=== PATIENT | female | born 2000 | race African-American/Black ===

== ENCOUNTER → 2020-04-10 11:08 | Outpatient (CLI) | payer OTHER, MEDICAID, SELFPAY | PROVIDERS: Visit Provider Physician Assistant | DX: N89.8 Other specified noninflammatory disorders of vagina (principal) | CPT/HCPCS: 87210; 87491; 87591 ==

== ENCOUNTER → 2020-07-05 10:31 | Outpatient (CLI) | payer OTHER, MEDICAID, SELFPAY | PROVIDERS: Visit Provider Physician Assistant | DX: N89.8 Other specified noninflammatory disorders of vagina (principal) | CPT/HCPCS: 87210 ==

== ENCOUNTER → 2020-07-31 09:26 | Outpatient (CLI) | payer OTHER, MEDICAID, SELFPAY ==
[2020-07-31 10:23] LABS: Add Manual Diff / Slide Review NO; Basophils Absolute Auto 0 /uL (0-100); Basophils Percent Auto 0.5 % (0-2); Eosinophils Absolute Auto 200 /uL (0-450); Eosinophils Percent Auto 1.8 % (2-4); Hematocrit 35.2 % (36-46); Hemoglobin 11.2 g/dL (12.0-16.0); Lymphocytes Absolute Auto 2100 /uL (1100-4500); Lymphocytes Percent Auto 24.2 % (25-40); Mean Corpuscular HGB Conc 31.7 % (30-36); Mean Corpuscular Hemoglobin 23.4 PG (26-34); Mean Corpuscular Volume 73.8 fL (80-100); Monocytes Absolute Auto 400 /uL (0-900); Monocytes Percent Auto 4.5 % (3-14); Neutrophils Absolute Auto 5900 /uL (1500-7000); Platelet Count 235 X10^3/uL (150-400); Red Blood Cell Count 4.77 X10^6/uL (4.0-5.2); Red Cell Distribution Width 17.5 % (11.6-14.8); White Blood Cell Count 8.5 X10^3/uL (4.5-11.0)
[2020-07-31 11:02] LABS: Hepatitis B Surface Antigen NEGATIVE s/c (NEGATIVE); Rubella Antibody IgG 11.3 IU/mL (>15)
[2020-07-31 11:19] LABS: HIV 1 & 2 Ab/Ag 4th Gen Combo NEGATIVE (NEGATIVE); Hep C Virus Ab w/Reflex Quant NEGATIVE s/c (NEGATIVE)
[2020-08-01 08:07] LABS: RPR Screen Non Reactive (Non Reactive); Varicella IgG Antibody 417 index (Immune >165)
== END ==
PROVIDERS: PCP Family Medicine; Referring Provider Family Medicine; Visit Provider Family Medicine
DX: Z34.81 Encounter for supervision of other normal pregnancy, first trimester (principal)
CPT/HCPCS: 36415; 80055; 86787; 86803; 86850; 86900; 86901; 87389

== ENCOUNTER → 2020-10-01 09:46 | Outpatient (CLI) | payer OTHER, MEDICAID, SELFPAY ==
[2020-10-03 20:07] LABS: Calc Gestational Age Ultrasound (.); Estriol, Free 0.82 ng/mL (.); Inhibin A, Dimeric 80.28 pg/mL (.); Inhibin A, MoM 0.63 (.); Maternal Ethnicity Black (.); Maternal Weight 227 lbs (.); Number of Fetuses No (.); OSBR Risk 1 IN 10000 (.); Results Report (.); Test Results *Screen Negative* (.); hCG, MoM 0.78 (.); hCG, Serum 20337 mIU/mL (.)
== END ==
PROVIDERS: PCP Family Medicine; Referring Provider Family Medicine; Visit Provider Family Medicine
DX: Z34.82 Encounter for supervision of other normal pregnancy, second trimester (principal); Z3A.16 16 weeks gestation of pregnancy
CPT/HCPCS: 36415; 82105; 82677; 84702; 86336

== ENCOUNTER → 2020-10-08 09:54 | Outpatient (CLI) | payer OTHER, MEDICAID, SELFPAY ==
[2020-10-08 12:25] LABS: Appearance Urine UA CLOUDY; Bilirubin Urine UA NEGATIVE (NEGATIVE); Color Urine UA YELLOW; Glucose Urine UA NEGATIVE (Negative); Ketones Urine UA NEGATIVE (NEGATIVE); Leukocyte Esterase Urine UA 2+ (NEGATIVE); Nitrite Urine UA NEGATIVE (Negative); Occult Blood Urine UA 1+ (Negative); Protein Urine UA TRACE (Negative); Specific Gravity Urine UA >=1.030 (1.000-1.035); Urobilinogen Urine UA 0.2 E.U./dL (0.2)
[2020-10-08 12:30] LABS: RBC Urine 1-5/HPF (0-5/HPF); Squamous Epithelial Cell Urine 10-30 /HPF (0-5/HPF); WBC Urine 1-5/HPF (0-5/HPF)
[2020-10-08 12:31] LABS: Amorphous Sediment Urine 2+; Bacteria Urine Moderate (10-30); Culture Indicated Urine Cult Not Indicated
== END ==
PROVIDERS: PCP Family Medicine; Visit Provider Family Medicine
DX: R30.0 Dysuria (principal); N89.8 Other specified noninflammatory disorders of vagina
CPT/HCPCS: 81001; 87210

== ENCOUNTER → 2020-10-23 07:51 | Outpatient (CLI) | payer OTHER, MEDICAID, SELFPAY ==
--- NOTE | 2020-10-23 07:54 | DI.US.S_ITS ---
PROCEDURE: US OB >= 14 WEEKS FETUS INDICATIONS: ANATOMY OUTSIDE/PRIOR DATING DATA: Last menstrual period (LMP): June 01, 2020. LMP-based estimated date of delivery (JESSE): March 08, 2021 . First dating scan (date and location): October 23, 2020 . Estimated date of delivery (JESSE) from first dating scan: March 08, 2021 . TECHNIQUE: Real-time scanning was performed of the fetus, with image documentation and biometric measurements. Endovaginal scanning: Not performed COMPARISON: None. FINDINGS: General: A single living intrauterine gestation is present. Presentation: Variable. Placenta: Placental position is anterior , without previa. Amniotic fluid index: 13.1 cm cm, normal range is 5-24 cm. heart rate: 141 beats per minute. Maternal cervical canal: 4.0 cm long. Normal lower limit is 2.5 cm. biometrics: Biparietal diameter: 4.6 cm, correlating with 20 weeks and 0 days Head circumference: 17.4 cm, correlating with 19 weeks and 6 days Abdominal circumference: 14.9 cm, correlating with 20 weeks and 1 day Femur length: 3.8 cm, correlating with 22 weeks and 1 day Estimated gestational age from initial scan: not applicable. Composite gestational age from present scan: 20 weeks and 4 days Estimated weight and percentile: 388 g which correlates with the 66 percentile based off gestational age. Measurement variability for biometric dating: +/- 7 days from 14 weeks to 15 weeks 6 days gestation, +/- 10 days from 16 weeks to 21 weeks 6 days gestation, +/- 2 weeks from 22 weeks to 27 weeks 6 days gestation, +/- 3 weeks for 28 weeks gestation or later. weight reference: 4500 g or EFW >90/95% is considered macrosomia or large for gestational age. EFW <10% is small for gestational age. EFW 5% or less is considered intra-uterine growth restriction. Anatomic survey: Neuro: Ventricles are non-dilated at less than 10 mm. Cisterna magna is normal at 3-11 mm. Cerebellum is normal in size and morphology. Nuchal skin fold: Normal at less than 6 mm between 14-21 weeks gestational age. Face: Nose and lips, facial profile are normal. Spine: No evidence for spina bifida. Limited visualization of the sacral spine period on longitudinal imaging, the sacral spine appears within normal limits. Heart: 4-chambered heart is present, with normal ventricular outflow tracts. Diaphragm: Diaphragm is intact. Stomach: Left-sided stomach is present. Kidneys: No hydronephrosis. Normal is less than 5 mm in 2nd trimester, less than 7 mm in 3rd trimester. Cord: The inferior edge of the placenta appears separate from the uterine myometrium. This may represent a circumvallate placenta versus placental contraction. Bladder: Normal in size. Extremities: All 4 extremities identified. IMPRESSION: 1. Single living intrauterine gestation with an estimated sonographic gestational age of approximately 20 weeks and 4 days. Estimated weight is approximately 388 g which [address] the fetus within the 66th percentile based off gestational age. 2. The sacral spine is not well visualized but on the longitudinal view, it appears within normal limits. Otherwise, unremarkable anatomic screening survey. 3. Inferior edge of the placenta appears to be from the myometrium which may represent possible circumvallate placenta versus artifactual due to contraction. Follow-up imaging recommended to re-evaluate sacral spine as well as the placenta. Dictated by: Shaun Pinzno M.D. on 10/23/2020 at 15:36 Approved by: Shaun Pinzon M.D. on 10/23/2020 at 15:54
== END ==
PROVIDERS: PCP Family Medicine; Referring Provider Family Medicine; Visit Provider Family Medicine
DX: Z34.82 Encounter for supervision of other normal pregnancy, second trimester (principal); Z3A.20 20 weeks gestation of pregnancy
CPT/HCPCS: 76811

== ENCOUNTER → 2020-12-03 11:50 | Outpatient (CLI) | payer OTHER, MEDICAID, SELFPAY ==
[2020-12-03 14:02] LABS: Hematocrit 32.3 % (36-46); Hemoglobin 10.6 g/dL (12.0-16.0)
[2020-12-03 14:17] LABS: GTT (PREG) 1 Hour PP 50gm Dose 119 mg/dL (76-139)
== END ==
PROVIDERS: PCP Family Medicine; Referring Provider Family Medicine; Visit Provider Family Medicine
DX: Z34.82 Encounter for supervision of other normal pregnancy, second trimester (principal); Z3A.24 24 weeks gestation of pregnancy
CPT/HCPCS: 36415; 82950; 85014; 85018

== ENCOUNTER → 2020-12-17 07:48 | Outpatient (CLI) | payer OTHER, MEDICAID, SELFPAY ==
--- NOTE | 2020-12-17 07:49 | DI.US.S_ITS ---
PROCEDURE: US OB LIMITED INDICATIONS: f/u study to look at sacral spine OUTSIDE/PRIOR DATING DATA: Last menstrual period (LMP): 06/01/2020 . LMP-based estimated date of delivery (JESSE): 03/08/2021 . First dating scan (date and location): 10/23/2020 . Estimated date of delivery (JESSE) from first dating scan: 8021 . TECHNIQUE: Real-time scanning was performed of the fetus, with image documentation and biometric measurements. Endovaginal scanning: No COMPARISON: [facility], OB >= 14 WEEKS FETUS, 10/23/2020, 8:11. FINDINGS: General: A single living intrauterine gestation is present. Presentation: Breech. Placenta: Placental position is anterior , without previa. Amniotic fluid index: 20.3 cm, normal range is 5-24 cm. heart rate: 140 beats per minute. Maternal cervical canal: 3.6 cm long. Normal lower limit is 2.5 cm. Delete Estimated gestational age from initial scan: 28 weeks 3 days IMPRESSION: Single living IUP redemonstrated and today's exam demonstrating normal appearance of the spine. No placental abnormalities. Dictated by: Estevan JOHN Interpreted: Conor Michael MD on 12/17/2020 at 16:40 Transcribed by: JACKI on 12/17/2020 at 16:42 Approved by: Conor Michael M.D. on 12/17/2020 at 16:49
== END ==
PROVIDERS: PCP Family Medicine; Referring Provider Family Medicine; Visit Provider Family Medicine
DX: Z36.2 Encounter for other antenatal screening follow-up (principal); Z3A.28 28 weeks gestation of pregnancy
CPT/HCPCS: 76815

== ENCOUNTER → 2021-02-11 09:42 | Outpatient (CLI) | payer OTHER, MEDICAID, SELFPAY ==
[2021-02-12 07:56] LABS: Strep Grp B PCR POS for Grp B Strep
== END ==
PROVIDERS: PCP Family Medicine; Visit Provider Family Medicine
DX: Z34.83 Encounter for supervision of other normal pregnancy, third trimester (principal); Z3A.36 36 weeks gestation of pregnancy
CPT/HCPCS: 87653

== ENCOUNTER 2021-03-13 12:34 | Observation (INO) | payer OTHER, MEDICAID, SELFPAY | END 2021-03-13 15:00 | disposition home or self-care (01) | PROVIDERS: Admitting Provider Specialist; PCP Family Medicine; Referring Provider Specialist; Visit Provider Specialist | DX: Z03.71 Encounter for suspected problem with amniotic cavity and membrane ruled out (principal); O48.0 Post-term pregnancy; Z3A.40 40 weeks gestation of pregnancy | CPT/HCPCS: 59025; 59050; 84112; G0378; G0379 ==

== ENCOUNTER 2021-03-18 06:37 | Inpatient (IN) | payer OTHER, MEDICAID, SELFPAY ==
[2021-03-18 08:17] LABS: COVID19 - ADMIT (NP swab/PCR) POSITIVE (Negative)
--- NOTE | 2021-03-18 08:37 | PM.OBHP.1 ---
OB HPI Date/Time Date of admission: 03/18/21 Date Patient Seen: 03/18/21 Time Patient Seen: 08:37 History of Present Condition Chief complaint: LABOR AND DELIVERY : 2 Para: 1 Estimated Date of Delivery: 03/08/21 Estimated Gestational Age (weeks): 41 3/7 Narrative: Ashely Connor is a 21 year old female with an estimated due date of 03/08/2021 consistent with LMP and early ultrasound. She is currently 41 weeks and 3 7 stays gestational age she is here for induction of labor because of post dates. In the office she had a Espitia score greater than 8. She presented to the labor and delivery for for Pitocin induction after informed consent was obtained in risk benefits and alternatives to induction of labor were reviewed with patient and partner. Her last day or so patient has been feeling well. She had [address] which was normal. There was concerns of potential rupture of membranes which was negative. She has had good movement. She has a category 1 tracing on arrival to the center with normal vital signs. Patient has no complaints of headache dizziness blurry vision. Routine hospital admission screening showed COVID positive and patient has no symptoms. Patient had routine care starting and 8 weeks of gestational age. Patient care was complicated by a BMI greater than 30. Ascus Pap smear with HPV high risk with normal colposcopy anemia and placed on iron supplement and GBS positive status. Indications Indication for induction OB: post dates History of Present care: good care Dating criteria: LMP confirmed by 1st trimester US Ultrasounds: normal mid trimester US Obstetrical complications: none Medical complications: none Preadmission Labs Blood type: A (+) positive -: Antibody screen: negative, Cystic fibrosis screen: unknown, GBS status: positive, HIV: negative, HSV 1: unknown, HSV 2: unknown and RPR/VDLR: negative -: Chlamydia screen: not detected and Gonorrhea screen: not detected -: Rubella: equivocal and Varicella: immune HCT: 10.6 HCAB: negative PAP: Abnormal Quad screen: Normal Urine: Normal 1 hr GTT: 119 Evaluation Evaluation Baseline heart rate: 135 Variability: Average (6-10) monitor accelerations: Present Monitor Decelerations: Absent Contraction Frequency (minutes): 0 Category of Tracing: Reactive Status: Category l Cervical dilation (cm): 2 Cervical effacement (%): 70 station: -1 [facility] Medical History Allergic rhinitis Back pain (~12/2018) Migraine No active medical problems Obesity Post depression (~03/2019) (spontaneous vaginal delivery) (~03/14/19) Family History Mother Adopted Carpal tunnel syndrome Hypertension Father No problems noted. Grandmother Unknown whether patient has any health problems Grandfather Unknown whether patient has any health problems Grandmother No problems noted. Grandfather Altered renal tissue perfusion Sister No problems noted. 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[employer] special markell needs: No Smoking Status: Never smoker second hand exposure: No alcohol intake: former substance use type: does not use and marijuana Meds Home Medications and Allergies Home Medications Medication Instructions Recorded Confirmed Type fluticasone propionate 50 1 spray NASAL DAILY 04/10/20 03/17/21 History mcg/actuation nasal spray,suspension (Flonase Allergy Relief) ferrous gluconate 324 mg (37.5 mg 324 mg PO DAILY #90 tab 08/26/20 03/17/21 Rx iron) tablet prenat.vits,toby,nfm-udwa-sbrnn 1 tab PO DAILY #90 tab 08/26/20 03/17/21 Rx Allergies Allergy/AdvReac Type Severity Reaction Status Date / Time No Known Drug Allergies Allergy Verified 03/17/21 10:13 Exam Narrative Exam Narrative: General: Alert no apparent distress. Affect is appropriate. HEENT: Neck is supple without lymphadenopathy pupils equal round and reactive. Cardio: S1-S2 regular rate and rhythm. Respiratory: Lungs clear to auscultation. Abdomen: Gravid. Extremities: Normal deep tendon reflexes trace edema. Objective Labs Labs: Laboratory Results - last 24 hr 03/18/21 06:55 SARS-CoV-2 (PCR) Positive H Assessment and Plan Assessment and Plan Assessment and Plan narrative: 21-year-old G2 para 141 and 3 7th weeks gestational age for induction of labor due to postdates GBS positive antibiotic prophylaxis per protocol COVID positive asymptomatic patient Patient for induction of labor induction care orders were written for all consents obtained. Re swab for COVID retest. COVID precautions implemented per nursing protocol. Patient will be given IV antibiotics for GBS positive status. Start Pitocin per protocol. Amniotomy and expectant management.
[2021-03-18 08:47] VITALS: BP 110/66
[2021-03-18 09:45] LABS: COVID19 - ADMIT (NP swab/PCR) POSITIVE (Negative)
[2021-03-18] MEDS: LACTATED RINGERS 1,000 ML 100 ML IV ×3 (10:30→18:43)
[2021-03-18 10:46] LABS: Add Manual Diff / Slide Review NO; Basophils Absolute Auto 0 /uL (0-100); Basophils Percent Auto 0.4 % (0-2); Eosinophils Absolute Auto 100 /uL (0-450); Hematocrit 37.5 % (36-46); Hemoglobin 11.9 g/dL (12.0-16.0); Lymphocytes Absolute Auto 1400 /uL (1100-4500); Lymphocytes Percent Auto 22.6 % (25-40); Mean Corpuscular HGB Conc 31.8 % (30-36); Mean Corpuscular Hemoglobin 23.8 PG (26-34); Mean Corpuscular Volume 74.9 fL (80-100); Monocytes Absolute Auto 400 /uL (0-900); Monocytes Percent Auto 7.2 % (3-14); Neutrophils Absolute Auto 4200 /uL (1500-7000); Neutrophils Percent Auto 68.8 % (50-75); Platelet Count 215 X10^3/uL (150-400); Red Cell Distribution Width 18.5 % (11.6-14.8); White Blood Cell Count 6.1 X10^3/uL (4.5-11.0)
[2021-03-18] MEDS: PENICILLIN G POTASSIUM 5,000,000 UNIT in DEXTROSE 5% IN WATER 250 ML IV (11:14)
[2021-03-18] MEDS: OXYTOCIN PREMIX 30 UNIT/500 ML PLAST..BAG IV (11:30)
--- NOTE | 2021-03-18 12:23 | PM.OBPNLAB ---
Date/Time Date Patient Seen: 03/18/21 Time Patient Seen: 12:23 Pain Control Pain control: tolerating well Pelvic Exam Dilation (cm): 3 Effacement (%): 70 station: -1 Amniotic membrane status: Ruptured Contractions Contractions on admission: regular Pitocin rate (mU/min): 6 Contraction frequency (min): 6 Contraction pattern: Regular Contraction intensity: Moderate Status status: Category l Monitor Accelerations: Present Monitor Decelerations: Absent Monitor Variability: Moderate Assessment and Plan Assessment: induction ongoing Comments: Rupture membrane clear fluid. Pitocin 6,000,000 its. Penicillin dose given. Starting to get uncomfortable. Rupture of membranes clear fluid
[2021-03-18] MEDS: FENT 2MCG/ML BUPIV 0.125% EPI 200 MCG/100 ML PLAST..BAG 12 MCG EPIDURAL (14:50)
[2021-03-18] MEDS: PENICILLIN G POTASSIUM 3,000,000 UNIT/50 ML FROZ.PIGGY 100 UNIT IV (16:35)
--- NOTE | 2021-03-18 18:32 | PM.OBPNLAB ---
Date/Time Date Patient Seen: 03/18/21 Time Patient Seen: 18:32 Pain Control Pain control: epidural Pelvic Exam Dilation (cm): 7 Effacement (%): 90 station: 0 Amniotic membrane status: Ruptured Contractions Contractions on admission: regular Monitor mode: External Contraction frequency (min): 5 Contraction pattern: Regular Contraction intensity: Strong/Firm Status status: Category l Assessment and Plan Assessment: active labor and induction ongoing Plan: continuous present management
--- NOTE | 2021-03-18 20:41 | PM.PROC.1 ---
Procedures Date/Time Date of procedure: 03/18/21 Time of procedure: 20:41 General Procedure description: Delivery of viable female vaginally Apgars 9 and 9 Induction of labor because of post dates 41 and 3 7 stays COVID positive Stage I of labor approximately 8 hours. During stage I of labor patient was admitted to the labor and delivery center. IV was started. COVID swab was done which was positive. Mom was asymptomatic She patient was paced and continued in isolation and contact precautions per protocol. Patient was started on penicillin per protocol for GBS positive status. Patient received 1 dose of antibiotics and then started on Pitocin. Patient had good contractions for an hour. heart tones were reassuring mom's vital signs were stable and she was afebrile. During stage I of labor Pitocin was titrated per protocol. When patient's contractions became uncomfortable she received an epidural. Mom made good progress through stage I. Category 1 heart tracing as well as category 2. Patient vital signs were normal throughout the process. Stage II of labor approximately 20 minutes. Patient pushed to deliver viable female infant born vaginally occiput anterior position. The delivery of the head there was nuchal cord. Baby was easily pushed out. Baby was placed on mother's abdomen had vigorous cry moving all extremities. Delayed cord clamping happened. Cord blood was taken. During stage II of labor. Patient had some variable and early B cells. With good rebound heart rate back up to normal. Mom made good progression from stage I to complete. Over short amount of time. Stage III of labor delivery of intact placenta with three-vessel cord. There is a small midline perineal tear first-degree which was repaired with 2 0 chromic suture in the usual fashion. Afterwards mom and baby resting comfortably. Pitocin was given through the IV bag post delivery of the baby. Pain was well controlled.
[2021-03-19] MEDS: ACETAMINOPHEN 325 MG TABLET 650 MG PO ×2 (00:01→06:44)
[2021-03-19] MEDS: IBUPROFEN 600 MG TABLET PO ×2 (00:02→06:44)
[2021-03-19 06:44] LABS: Hematocrit 32.1 % (36-46); Hemoglobin 10.1 g/dL (12.0-16.0)
[2021-03-19 07:25] VITALS: TEMP 36.2
--- NOTE | 2021-03-19 07:29 | PM.DS.1 ---
History of Present Illness History of Present Illness Chief complaint: maternity Discharge Providers Provider Date of admission: 03/18/21 06:37 Discharge Date: 03/19/21 Primary care physician: Arnie Izquierdo MD Consults: 03/19/21 20:37 Consult to Family Assessment Worker Routine Comment: Discharge provider: Arnie Izquierdo MD Summary Hospital Course Discharge Diagnosis: Delivery of viable female infant COVID positive asymptomatic Routine care. Hospital Course: Patient was admitted to the labor and delivery floor for induction of labor due to postdates. She progressed nicely during her labor and delivered a viable female . Mom tested positive at the beginning of the screening mom was asymptomatic. day 1. Vital signs were stable. Mom was afebrile. Having some difficulty with breast-feeding. Bleeding was well controlled. Pain was controlled. She is ambulating showering tolerating her diet. Hemoglobin hematocrit was stable. Uterus was firm and the umbilicus. Discharge plan and instructions were given. Patient will follow-up in 6 weeks. Objective Labs Result Diagrams: 03/19/21 06:30 Labs: Laboratory Results - last 24 hr 03/18/21 03/18/21 03/18/21 06:55 08:20 10:22 WBC 6.1 RBC 5.00 Hgb 11.9 L Hct 37.5 MCV 74.9 L MCH 23.8 L MCHC 31.8 RDW 18.5 H Plt Count 215 Neut % (Auto) 68.8 Lymph % (Auto) 22.6 L [place] % (Auto) 7.2 Eos % (Auto) 1.0 L Baso % (Auto) 0.4 Neut # (Auto) 4200 Lymph # (Auto) 1400 [place] # (Auto) 400 Eos # (Auto) 100 Baso # (Auto) 0 SARS-CoV-2 (PCR) Positive H Positive H Blood Type Antibody Screen 03/18/21 03/19/21 10:22 06:30 WBC RBC Hgb 10.1 L Hct 32.1 L MCV MCH MCHC RDW Plt Count Neut % (Auto) Lymph % (Auto) [place] % (Auto) Eos % (Auto) Baso % (Auto) Neut # (Auto) Lymph # (Auto) [place] # (Auto) Eos # (Auto) Baso # (Auto) SARS-CoV-2 (PCR) Blood Type A Positive Antibody Screen Negative [facility] Medical History Allergic rhinitis Back pain (~12/2018) Migraine No active medical problems Obesity Post depression (~03/2019) (spontaneous vaginal delivery) (~03/14/19) Family History Mother Adopted Carpal tunnel syndrome Hypertension Father No problems noted. Grandmother Unknown whether patient has any health problems Grandfather Unknown whether patient has any health problems Grandmother No problems noted. Grandfather Altered renal tissue perfusion Sister No problems noted. 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 markell needs: No Smoking Status: Never smoker second hand exposure: No alcohol intake: former substance use type: does not use and marijuana Discharge Plan Discharge Plan Patient Disposition: Home Discharge orders & Medications Prescriptions: New docusate sodium [DOK] 100 mg Capsule 100 mg PO DAILY Qty: 20 RF: 0 ibuprofen 600 mg Tablet 600 mg PO Q6HR PRN (Reason: Pain, Mild (1-3)) Qty: 30 RF: 0 Continued fluticasone propionate [Flonase Allergy Relief] 50 mcg/actuation spray,suspension 1 spray NASAL DAILY RF: 0 prenat.vits,toby,yjx-nwlj-yqplf Tablet 1 tab PO DAILY Qty: 90 RF: 3 ferrous gluconate 324 mg (37.5 mg iron) tablet 324 mg PO DAILY Qty: 90 RF: 3 Follow up/Referrals: Arnie Izquierdo MD [Primary Care Provider] - Skin/Wound/Dressing Care Report to your healthcare provider any signs of infection, such as:: chills, fever, night sweats, increased pain and unusual drainage Visit Report/Discharge Packet Visit Report Forms: Patient Portal/API, Stroke Signs & Symptoms Discharge Data Primary Care Provider: Arnie Izquierdo
[2021-03-19] MEDS: DOCUSATE 100 MG CAPSULE PO (09:10)
[2021-03-19] MEDS: PRENATAL VIT,CALC/IRON/FOLIC 1 TABLET 1 TAB PO (09:10)
[2021-03-19 10:41] VITALS: BP 133/76; PULSE 77; RESP 17; TEMP 36.2
== END 2021-03-19 16:45 | disposition home or self-care (01) | DRG 560 ==
PROVIDERS: Admitting Provider Family Medicine; PCP Family Medicine; Referring Provider Family Medicine; Visit Provider Family Medicine
DX: O48.0 Post-term pregnancy (principal); Z3A.41 41 weeks gestation of pregnancy; Z37.0 Single live birth; O98.52 Other viral diseases complicating childbirth; U07.1 COVID-19; O99.824 Streptococcus B carrier state complicating childbirth; R87.810 Cervical high risk human papillomavirus (HPV) DNA test positive; O99.02 Anemia complicating childbirth; D64.9 Anemia, unspecified; O69.81X0 Labor and delivery complicated by cord around neck, without compression, not applicable or unspecified; O70.0 First degree perineal laceration during delivery
CPT/HCPCS: 36415; 59050; 59409; 85014; 85018; 85025; 86850; 86900; 86901; 87635; C9803; G0379; J2540; J2590

== ENCOUNTER → 2022-04-21 10:02 | Outpatient (CLI) | payer OTHER, MEDICAID, SELFPAY | PROVIDERS: PCP Family Medicine; Visit Provider Nurse Practitioner Family | DX: R30.0 Dysuria (principal); N89.8 Other specified noninflammatory disorders of vagina | CPT/HCPCS: 81002; 87086; 87147; 87210 ==